=== PATIENT | female | born 1995 | race Caucasian/White ===

== ENCOUNTER 2023-04-20 22:55 | Inpatient (IN) | payer MEDICAID, SELFPAY ==
[2023-04-20] MEDS: Lactated Ringers 1,000 ML 200 ML IV (23:14)
[2023-04-20 23:20] VITALS: BP 123/76; TEMP 36.3
[2023-04-20] MEDS: LACTATED RINGERS 500 ML 999 ML IV (23:20)
[2023-04-20 23:21] VITALS: PULSE 96; O2SAT 98
[2023-04-20 23:23] VITALS: BMI 25.4
[2023-04-20 23:42] LABS: Absolute Lymphocyte Count 1.78 X10^3/uL (0.83-4.51); Absolute Neutrophil Count 7.1 X10^3/uL (2.0-7.7); Basophil# 0.02 X10^3/uL; Basophil% 0.2 % (0-1); Eosinophil# 0.04 X10^3/uL; Eosinophils% 0.4 % (0-5); Hematocrit 35.4 % (37-47); Hemoglobin 11.9 g/dL (12.0-15.0); Lymphocyte # 1.78 X10^3/ul (0.83-4.51); Lymphocyte % 18.4 % (19-41); Mean Corp Hgb Conc 33.6 g/dL (32-36); Mean Corpuscular Volume 89.2 fL (81-99); Mean Platelet Vol. 11.7 fl (6.2-12.0); Monocyte# 0.67 X10^3/uL; Monocyte% 6.9 % (0-10); NRBC Flagged by Analyzer 0 % (0-5); Neutrophil % 73.6 % (47-70); Platelet Count 207 K/mm3 (150-450); RBC Distribution Width CV 13.6 % (11.6-14.6); RBC Distribution Width SD 44.6 fl (35.1-43.9); Red Blood Count 3.97 M/mm3 (4.2-5.4); White Blood Count 9.7 K/mm3 (4.4-11.0)
[2023-04-20 23:51] LABS: Bedside Glucose 116 mg/dL (74-106)
[2023-04-21] VITALS (67 sets, daily range): BP systolic 82–151; BP diastolic 50–84; PULSE 78–173; RESP 14–16; TEMP 36.2–37.4; O2SAT 92–98
[2023-04-21 00:17] LABS: Syphilis Antibodies Non-reactive
[2023-04-21] MEDS: fentaNYL-bupivacaine (epidural) 100 ML BAG EPIDURAL (00:36)
[2023-04-21] MEDS: LACTATED RINGERS 500 ML 999 ML IV (00:50)
[2023-04-21 02:00] LABS: Amphetamine Urine VISTA NEGATIVE (<1000 ng/mL); Barbiturate Urine VISTA NEGATIVE (< 200 ng/mL); Benzodiazepine Urine VISTA NEGATIVE (< 200 ng/mL); Cocaine Urine VISTA NEGATIVE (< 300 ng/mL); Ecstacy Urine VISTA NEGATIVE (< 500 ng/mL); Methadone Urine VISTA NEGATIVE (< 300 ng/mL); PCP Urine VISTA NEGATIVE (< 25 ng/mL); THC Urine VISTA NEGATIVE (< 50 ng/mL); Vista UDS pH Range 8
[2023-04-21] MEDS: Oxytocin 10 UNITS/ML Vial IM (02:07)
[2023-04-21] MEDS: Oxytocin 15 Units/NS 250ml 15 UNITS/250 ML IV.SOLN 83 UNITS IV (02:07)
--- NOTE | 2023-04-21 02:20 | PCM.HP.OB ---
HPI - General General Date of Admission: 04/20/23 HPI Narrative RADHA LITTLE, is a 27 F at 40.4 weeks gestation who presents in spontaneous, active labor. has been complicated by GDM A1, and history of drug use, tobacco use, migraines, and anxiety. Maternal Data Information BRANDON Calculator Estimated Delivery Date Method Current WG Current Estimate 04/17/23 Manual 40w 4d PFSH PFSH Medical History Anxiety Depression Gestational diabetes Superficial varicosities Home Medications vitamin with calcium no.72-iron 27 mg-folic acid 1 mg tablet ( Vitamins Plus Low Iron) tab PO Q24H SEE PROVIDER 04/20/23 [History Last Taken 04/20/23 08:00] Allergy/AdvReac Type Severity Reaction Status Date / Time No Known Allergies Allergy Verified 04/20/23 23:31 Surgical History History of surgery Social History Smoking Status: Former smoker History Elective abortions Hx Para 1 Spontaneous abortions Hx # Term Pregnancies Ectopic pregnancies Hx # Pregnancies Multiple births # of living children ROS Eyes Eyes: Denies blurry vision, change in vision or spots in vision ENT HEENT: Denies dizziness or headache(s) Cardiovascular Cardiovascular: Denies abdominal pain, chest pain or dyspnea Respiratory/Chest Respiratory/Chest: Denies cough, dyspnea, shortness of breath at rest or shortness of breath with exertion Gastrointestinal Gastrointestinal: Denies abdominal pain, diarrhea or vomiting Genitourinary Genitourinary: Denies change in urinary stream, difficulty urinating or dysuria Musculoskeletal Musculoskeletal: Reports none Integumentary Integumentary: Denies rash Neurologic Neurologic: Denies dizziness, headache(s), memory loss or weakness Psychiatric Psychiatric: Reports none Vital Signs Vital Signs Vital Signs: 04/20/23 23:20 04/20/23 23:21 04/20/23 23:21 Temperature Temperature Source Pulse Rate 96 Blood Pressure 123/76 H BP Systolic 123 BP Diastolic 76 Pulse Ox 98 04/20/23 23:20 04/20/23 23:20 04/21/23 00:21 Temperature 97.4 F L Temperature Source Temporal Temporal Pulse Rate Blood Pressure BP Systolic BP Diastolic Pulse Ox 02/12/24 00:22 04/21/23 00:22 04/21/23 00:22 Temperature Temperature Source Pulse Rate 112 H Blood Pressure 115/70 BP Systolic 115 BP Diastolic 70 Pulse Ox 92 04/21/23 00:21 04/21/23 00:27 04/21/23 00:27 Temperature 97.4 F L Temperature Source Pulse Rate 111 H Blood Pressure BP Systolic BP Diastolic Pulse Ox 97 04/21/23 00:27 04/21/23 00:27 04/21/23 00:32 Temperature Temperature Source Pulse Rate 122 H 109 H Blood Pressure 135/77 H BP Systolic 135 BP Diastolic 77 Pulse Ox 04/21/23 00:32 04/21/23 00:34 04/21/23 00:34 Temperature Temperature Source Pulse Rate 100 Blood Pressure BP Systolic BP Diastolic Pulse Ox 97 92 04/21/23 00:37 04/21/23 00:37 04/21/23 00:37 Temperature Temperature Source Pulse Rate 100 Blood Pressure 118/59 L BP Systolic 118 BP Diastolic 59 Pulse Ox 97 04/21/23 00:37 04/21/23 00:42 04/21/23 00:42 Temperature Temperature Source Pulse Rate 97 100 Blood Pressure 96/62 BP Systolic 96 BP Diastolic 62 Pulse Ox 04/21/23 00:42 04/21/23 00:43 04/21/23 00:43 Temperature Temperature Source Pulse Rate 100 Blood Pressure 100/58 L BP Systolic 100 BP Diastolic 58 Pulse Ox 98 04/21/23 00:47 04/21/23 00:47 04/21/23 00:48 Temperature Temperature Source Pulse Rate 102 H 110 H Blood Pressure BP Systolic BP Diastolic Pulse Ox 96 04/21/23 00:48 04/21/23 00:49 04/21/23 00:49 Temperature Temperature Source Pulse Rate 99 Blood Pressure 135/64 H BP Systolic 135 BP Diastolic 64 Pulse Ox 93 04/21/23 00:52 04/21/23 00:52 04/21/23 00:57 Temperature Temperature Source Pulse Rate 109 H Blood Pressure 98/54 L BP Systolic 98 BP Diastolic 54 Pulse Ox 95 04/21/23 00:57 04/21/23 00:57 04/21/23 01:02 Temperature Temperature Source Pulse Rate 106 H 117 H Blood Pressure BP Systolic BP Diastolic Pulse Ox 93 04/21/23 01:02 04/21/23 01:02 04/21/23 01:02 Temperature Temperature Source Pulse Rate 114 H Blood Pressure 108/53 L BP Systolic 108 BP Diastolic 53 Pulse Ox 98 04/21/23 01:07 04/21/23 01:07 04/21/23 01:08 Temperature Temperature Source Pulse Rate 104 H Blood Pressure 103/58 L BP Systolic 103 BP Diastolic 58 Pulse Ox 97 04/21/23 01:08 04/21/23 01:12 04/21/23 01:12 Temperature Temperature Source Pulse Rate 109 H 104 H Blood Pressure BP Systolic BP Diastolic Pulse Ox 96 04/21/23 01:13 04/21/23 01:13 04/21/23 01:17 Temperature Temperature Source Pulse Rate 103 H 101 H Blood Pressure BP Systolic BP Diastolic Pulse Ox 94 04/21/23 01:17 04/21/23 01:22 04/21/23 01:22 Temperature Temperature Source Pulse Rate 101 H Blood Pressure BP Systolic BP Diastolic Pulse Ox 95 96 04/21/23 01:27 04/21/23 01:27 04/21/23 01:32 Temperature Temperature Source Pulse Rate 101 H 103 H Blood Pressure BP Systolic BP Diastolic Pulse Ox 95 04/21/23 01:32 04/21/23 01:37 04/21/23 01:37 Temperature Temperature Source Pulse Rate 100 Blood Pressure BP Systolic BP Diastolic Pulse Ox 95 96 04/21/23 01:40 04/21/23 01:42 04/21/23 01:42 Temperature Temperature Source Temporal Pulse Rate 96 Blood Pressure 82/50 L BP Systolic 82 BP Diastolic 50 Pulse Ox 04/21/23 01:42 04/21/23 01:40 04/21/23 01:45 Temperature 98.6 F Temperature Source Pulse Rate Blood Pressure 86/51 L BP Systolic 86 BP Diastolic 51 Pulse Ox 96 04/21/23 01:45 04/21/23 01:47 04/21/23 01:47 Temperature Temperature Source Pulse Rate 173 H 104 H Blood Pressure BP Systolic BP Diastolic Pulse Ox 96 04/21/23 01:50 04/21/23 01:50 04/21/23 02:15 Temperature Temperature Source Pulse Rate 106 H 103 H Blood Pressure 151/84 H BP Systolic 151 BP Diastolic 84 Pulse Ox 04/21/23 02:15 04/21/23 02:15 04/21/23 02:15 Temperature Temperature Source Pulse Rate 107 H Blood Pressure 103/57 L BP Systolic 103 BP Diastolic 57 Pulse Ox 97 04/21/23 02:15 04/21/23 02:15 04/21/23 02:20 Temperature 98.8 F Temperature Source Temporal Pulse Rate 109 H Blood Pressure BP Systolic BP Diastolic Pulse Ox Weight Weight: 144 lb Body Mass Index (BMI) 25.4 Physical Exam Const alert, oriented x3 and no apparent distress General Appearance: cooperative Orientation / Consciousness: awake Exam Limitations: no limitations HEENT normocephalic Head and Scalp: normal to inspection Eyes General Eye: normal appearance of both eyes Neck full ROM and no lymphadenopathy Lymph Lymphatic: no lymphadenopathy noted Chest inspection of chest normal Resp normal respiratory effort, normal air movement and clear to auscultation bilaterally Effort and Inspection: able to speak in complete sentences and symmetric chest movement Cardio regular rate and regular rhythm GI normal to inspection, nondistended, normoactive bowel sounds Manual OB Exam: presentation cephalic Back/Spine normal ROM Extremity full ROM and no calf tenderness Skin no rashes or lesions noted General Skin Exam: no breakdown Neuro oriented x3 and CN's II-XII intact bilaterally Psych mental status grossly normal and thought process normal Labs Labs Labs: Blood Type Pending Antibody Screen NEGATIVE Hct 35.4 % (37-47) L Hgb 11.9 g/dL (12.0-15.0) L Syphilis Total Ab Non-reactive GBS negative Assessment & Plan (1) 40 weeks gestation of : (2) Spontaneous onset of labor: (3) History of drug abuse in remission: (4) History of tobacco use: PLAN: Plan CE- 6.5/90/-0 Admit to labor and delivery Routine labs Start IV and run fluids per orders GBS negative Epidural when indicated Anticipate Dr. Cortes notified of admission and is collaborating physician
--- NOTE | 2023-04-21 02:26 | EX.PCM.OBRPT ---
Assessment & Plan (1) (spontaneous vaginal delivery): (2) History of tobacco use: (3) History of drug abuse in remission: (4) Spontaneous onset of labor: (5) Precipitous delivery: (6) Spontaneous rupture of membranes: (7) 40 weeks gestation of : (8) GDM (gestational diabetes mellitus), class A1: Maternal Data Information BRANDON Calculator Estimated Delivery Date Method Current WG Current Estimate 04/17/23 Manual 40w 4d Vaginal Delivery Maternal Presentation Maternal Presentation: Active Labor Operative Information Date of Procedure: 04/21/23 Pre-Operative Diagnosis: Term gestation, Spontaneous onset of labor Post-Operative Diagnosis: Precipitous , live male Surgery / Procedure Performed: Spontaneous Vaginal Delivery Type of Anesthesia: Epidural Estimated Blood Loss: 150 Time of Delivery: 02:01 Findings Description of Procedure: Patient quickly progressed to complete dilation. With minimal maternal effort, head delivered over intact perineum followed immediately by infant's anterior shoulder and remainder if infant body. Vigorous male placed on maternal abdomen and attended to by nursing staff. Pitocin IV and IM given for active management of the third stage of labor. 3 vessel cord clamped and cut by FOB after delay. Cord blood collected. Infant placed skin to skin with patient. Placenta delivered spontaneously and intact. Vagina and perineum intact. Vaginal sweep completed by me. Fundus firm 2 below U. EBL 150cc APGARS 9/10. Patient and infant bonding well at this time. Planning on breast feeding. Presentation: Vertex Amniotic Membrane Rupture Type: Spontaneous Time of Membrane Rupture: 0143 Amniotic Fluid Description: Clear Placental Delivery Description: Spontaneous Placenta Disposition: [facility] Cord Vessel Description: 3 Vessels Cord Entanglement: None Infant A Gender: Male (1 minute): 9 (5 minute): 10 Delayed Cord Clamping: Yes Post Vaginal Delivery Medications Given After Delivery: IV Pitocin and IM Pitocin Episiotomy Description: None Laceration: None Complication Complications: None
[2023-04-21 03:17] LABS: Bedside Glucose 114 mg/dL (74-106)
[2023-04-21 03:17] LABS: Bedside Glucose 114 mg/dL (74-106)
[2023-04-21 03:23] LABS: Bedside Glucose 126 mg/dL (74-106)
[2023-04-21] MEDS: 0.9% Saline Lock 10 ML Syringe IV (05:12)
[2023-04-21] MEDS: Naproxen 500 MG Tablet PO (09:52)
[2023-04-21] MEDS: Acetaminophen 500 MG Tablet 1000 MG PO ×2 (11:13→17:06)
[2023-04-22 02:01] VITALS: BP 101/78; PULSE 88; RESP 16; TEMP 36.2; O2SAT 95
[2023-04-22] MEDS: Acetaminophen 500 MG Tablet 1000 MG PO ×2 (03:30→12:43)
--- NOTE | 2023-04-22 06:15 | NURSING ---
pt encourage to drink orange juice due to 68 fasting blood sugar, pt denied stated I will eat something soon .
[2023-04-22 06:24] LABS: Bedside Glucose 68 mg/dL (74-106)
[2023-04-22] MEDS: Naproxen 500 MG Tablet PO (07:45)
[2023-04-22 08:00] VITALS: BP 110/78; PULSE 82; RESP 16; TEMP 36.3; O2SAT 97
--- NOTE | 2023-04-22 11:18 | PCM.PN.OB ---
Subjective Subjective Pain well controlled, average lochia. Objective Data Objective Data Vital Signs: Vital Signs Temp Pulse Resp BP Pulse Ox O2 Del Method 97.4 F L 82 16 110/78 97 Room Air 04/22/23 08:00 04/22/23 08:00 04/22/23 08:00 04/22/23 08:00 04/22/23 08:00 04/22/23 08:00 Oxygen Delivery Method Room Air Weight: 65.317 kg Body Mass Index (BMI) 25.4 Intake & Output: Intake and Output for Last 24 Hours 04/20/23 04/21/23 04/22/23 23:59 23:59 23:59 Intake Total 1580.00 / 1580.00 Output Total 1550 / 1550 Balance 30.00 / 30.00 Lab / Micro Data 04/20/23 23:14 Labs: Laboratory Results - last 24 hr 04/22/23 06:04: POC Glucose 68 L Physical Exam Const alert and no apparent distress Narrative: Fundus firm, below umbilicus. Assessment & Plan (1) (spontaneous vaginal delivery): PLAN: PPD#1 routine care
[2023-04-22 14:00] VITALS: BP 97/68; PULSE 92; RESP 16; TEMP 36.7; O2SAT 97
--- NOTE | 2023-04-22 14:35 | CASEMGMT ---
Social Work Assessment Labor and Delivery Unit Patient Address: [facility] [place] [address] Phone number: [phone] Date of Referral: 04/20/23 Time of Referral:? 2344 Referred By: Nenita Glaser Date of Intervention: ??04/22/23 Time of Intervention:? 1430 Reason for Referral:? substance abuse Sw completed chart review and acknowledges social work consult due to maternal history of substance abuse. Sw presented to bedside and introduced self to mother of baby (MOB- Ximena) and father of baby (FOB- Jan) and explained reason for social work involvement. Sw completed psychosocial assessment and provided parents with education and literature regarding depression and anxiety. History obtained from: medical records, MOB and FOB Household composition: Parents report that they currently live in an apartment, with themselves and their two other children from previous relationships. REMI's son, Delbert is 3.5 and lives with them all the time, and GOLDIE's son, Edgar lives with them end finder twisting department. baby will also be discharged with parents and will reside with family. Patient's parent/guardian status:? FOB states that he and MOB have been together for one year. FOB states that they both have gone through substance use treatment and were introduced to each other. FOB states that he left his son's mother to be with MOB. FOB reports that Edgar's mother has been extremely supportive and they co-parent extremely well. - No concerns at this time regarding domestic violence or intimate partner violence. ? Medical History: REMI is 27 year old female who is 3, para 1- now 2 following labor and delivery of . ? Educational Status:?Both parents graduated from high school and have attended some college, but did not obtain a degree. Financial Status: Both parents are gainfully employed. Both parents work for [employer] in [place]. FOB states that he is the general counsel of the restaurant. Supplies:?? MOB states that she has obtained all necessary baby supplies, including: safe sleep space, clothes, diapers and wipes. Childcare/Caregiver(s):? MOB will be primary caregiver to baby, along with FOB when he is not at work. Parents state that if they ever need assistance with childcare they have some family members that can help them. Transportation:??No transportation barriers. Programs/Agencies Involved: ??MOB is connected to supports and resources provided through [employer] (SNAP, insurance and WIC). ?Parents state that they are also connected to recovery supports as well. Children Services/Legal Issues:???Parents deny any history of involvement with Children services. Parents state that they engaged in treatment prior to their other children being born. Behavioral Health Issues: ??Mental Health History:??FOB denies mental health diagnoses. FOB states that although he has never been diagnosed with a mental illness, he does believe that he has something underneath. FOB states that he can tell that he goes through cycles, there are times when he is high with lots of adrenaline and feels like he can do anything, and then about a week later he feels low and is in a funk and is not motivated to do anything. FOB states that the highs are what help him excel at his job/ career. FOB states that he can't afford to be in a low with everything that he has going on in his life. FOB states that he is receptive to getting connected to a psychologist and therapist. SW provided list of resources. ? Substance Use History:Parents both admit to history of addiction. Both parents state that they went through treatment/ rehab. MOB went to [facility] and FOB attended [facility]. Both parents remain connected to addiction resources/ supports. REMI denies substance use during .?? Family History:?MOb states that there is mental health history in her family, but she is not sure of specific diagnoses. FOB states that he has the same opinions for his family. ? Drug Screens: MOB and baby drug screens were negative at admission. ?? Family/Social Stressors:? Parents deny any concerns or stressors at this time. Support Systems: Both parents state that their families are supportive. Depression/Shaken Baby/Safe Sleeping:? Sw provided education on signs and symptoms of baby blues and depression and anxiety to be on the lookout for. Sw provided literature on healty and appropriate coping skills to utilize should MOB struggle. MOB completed [place] Depression Scale and her score was a 5. Sw provided education and support. Sw educated parents on shaken baby prevention and ABCs of safe sleep and shaken baby prevention. Parents express understanding. ASSESSMENT:? MOB and baby admitted due to labor and delivery of . Parents both have significant substance use history, received treatment and are both sober at this time. MOB denies substance use during , MOB and baby drug screens at delivery were both negative. Parents observed to provide attentive and appropriate hands on care of . Parents were talkative and receptive to sw involvement and support. PLAN:? MOB and baby to be discharged when medically ready. ?No other services requested or indicated. Ibrahima Quigley, TICKET COLLECTOR, REFERENCE TEST CLERK
--- NOTE | 2023-04-22 15:47 | DCINST_ITS ---
Discharge Instructions Diet Discharge Diet: No restrictions Activity May resume sexual activity in: 6 weeks Dressing / Incision Call your doctor if your incision/area has: Continuous Slow Oozing, Sudden Increased Bleeding, Foul Smelling Discharge and Swelling at the incision site Call your doctor if you observe: Fever of 101 or Higher and Inability to urinate Follow Up Care Please Follow Up With: Nenita Glaser CNM When: Follow up with our office in 1-2 and 6 weeks or as needed. [phone] or send a [employer] message Test Results: Test results from this visit will be discussed in further detail at your follow- up appointment, if applicable. Discharge Plan Admission Admit Date/Time: 04/20/23 22:55 Primary Reason for Your Visit: Vaginal delivery Attending Provider: Nenita Glaser Primary Care Provider: Care Physician,Caridad Primary Discharge Orders/Prescriptions Prescriptions: No Action Vitamin Plus Low Iron 27 mg iron- 1 mg tablet PO Q24H Patient Comments: TAKE 1 TABLET BY MOUTH ONCE DAILY Referrals / Follow Up: Care Physician,No Primary [Primary Care Provider] - Disposition Disposition (needs filled in before D/C Order can be placed): Home, Self Care
[2023-04-22 18:15] VITALS: BP 109/76; PULSE 89; RESP 16; TEMP 36.4; O2SAT 97
== END 2023-04-22 19:15 | disposition home or self-care (01) | DRG 560 ==
PROVIDERS: Admitting Provider Advanced Practice Midwife; Visit Provider Advanced Practice Midwife
DX: O42.92 Full-term premature rupture of membranes, unspecified as to length of time between rupture and onset of labor (principal); Z37.0 Single live birth; O24.420 Gestational diabetes mellitus in childbirth, diet controlled; O62.3 Precipitate labor; Z3A.40 40 weeks gestation of pregnancy; Z87.891 Personal history of nicotine dependence
CPT/HCPCS: 59025; 59050; 80307; 82962; 85025; 86780; 86850; 86900; 86901; 99221; J7120; A4216; G0378